=== PATIENT | female | born 1980 | race Caucasian/White ===

== ENCOUNTER 2020-05-07 10:01 | Inpatient (IN) | payer OTHER ==
[~2020-05-07] VITALS: Ht 175.3 cm; Wt 131.5 kg
--- NOTE | ~2020-05-07 | PROC ---
[address] [address] PROCEDURE REPORT Name: OLI SILVERIO Room: [address] IN M.R.#: [id number] Admission: 05/07/20 Attend Phys: Damon Stratton MD Discharge: 05/11/20 Date of : 82 Report #: [id number] THIS REPORT FOR: //name// cc: MAXIM - No family physician/PCP MAXIM - No family physician/PCP ~ THIS REPORT FOR: //name// For GI report, please see the Provation report in Perceptive 7 content. By: 1040Medical Records Staff [facility] /[place]
[2020-05-07 10:06] VITALS: BP 151/99
[2020-05-07] MEDS ORDERED: SUPER THERAVIT1 EACH PO (10:12)
[2020-05-07 10:19] LABS: URINE BLOOD NEGATIVE (Negative); URINE CLARITY CLEAR; URINE COLOR YELLOW; URINE GLUCOSE-RANDOM 1+ (Negative); URINE KETONES 2+ (Negative); URINE LEUKOCYTES-REFLEX TRACE (Negative); URINE PROTEIN TRACE (Negative); URINE SPECIFIC GRAVITY 1.025 (1.005-1.030)
[2020-05-07 10:22] LABS: ICTOTEST (BILI CONFIRMATORY) Negative (Negative); URINE BILIRUBIN 3+ (Negative); URINE NITRITE-REFLEX POSITIVE (Negative)
[2020-05-07 10:28] LABS: CASTS None Seen /LPF (None Seen); CRYSTALS None Seen /LPF (None Seen); MUCUS None Seen strn/LPF (None Seen); SQUAMOUS 4-10 Moderate /LPF (0-3); URINE RBC 3-10 Few /HPF (0-2); URINE WBC-REFLEX 0-5 Rare /HPF (0-5)
[2020-05-07 10:37] LABS: ABSOLUTE EOSINOPHILS 0.1 thou/uL (0.0-0.7); ABSOLUTE LYMPHOCYTES 0.8 thou/uL (0.8-5.3); ABSOLUTE MONOCYTES 0.5 thou/uL (0.0-1.2); ABSOLUTE NEUTROPHILS 6.1 thou/uL (1.6-8.1); BASOPHILS 0.4 %; EOSINOPHILS 0.8 %; HEMATOCRIT 44.4 % (37.0-47.0); HEMOGLOBIN 15.5 gm/dL (12.0-15.0); LYMPHOCYTES 10.2 %; MCH 29.8 pg (26.0-34.0); MCV 85.2 fL (80.0-100.0); MONOCYTES 6.5 %; MPV 8.7 fl. (7.2-11.1); NUCLEATED RBCS 0 /100WBC; PLATELET COUNT* 213 thou/uL (150-400); POLYS 82.1 %; RBC 5.21 mil/uL (4.20-5.00); WBC 7.4 thou/uL (4.0-11.0)
[2020-05-07 10:44] LABS: CALCIUM 8.6 mg/dL (8.5-10.1); CREATININE 0.8 mg/dL (0.6-1.3); POTASSIUM 3.6 mmol/L (3.5-5.1)
[2020-05-07 10:48] LABS: ALBUMIN 3.9 g/dL (3.4-5.0); TOTAL BILIRUBIN 7.6 mg/dL (<0.1-1.0); TOTAL PROTEIN 7.8 g/dL (6.4-8.2)
--- NOTE | 2020-05-07 12:25 | NUR ---
MARTHA NOTIFIED UPON PT RETURN FROM CT. PT CONNECTED TO BP AND PULSE OX MONITOR
[2020-05-07 19:51] VITALS: BP 124/70
[2020-05-07 21:30] VITALS: BP 122/58
[2020-05-08 02:07] LABS: HEPATITIS B SURFACE AG Negative (Negative)
[2020-05-08 04:03] LABS: ABSOLUTE LYMPHOCYTES 0.7 thou/uL (0.8-5.3); ABSOLUTE MONOCYTES 0.5 thou/uL (0.0-1.2); ABSOLUTE NEUTROPHILS 5.4 thou/uL (1.6-8.1); BASOPHILS 0.3 %; EOSINOPHILS 0.6 %; HEMATOCRIT 37.4 % (37.0-47.0); LYMPHOCYTES 11.1 %; MCH 29.6 pg (26.0-34.0); MCHC 35.4 g/dL (28.0-37.0); MCV 83.5 fL (80.0-100.0); MPV 8.3 fl. (7.2-11.1); NUCLEATED RBCS 0 /100WBC; PLATELET COUNT* 193 thou/uL (150-400); RBC 4.47 mil/uL (4.20-5.00); RDW-CV 13.4 % (10.5-14.5); WBC 6.8 thou/uL (4.0-11.0)
[2020-05-08 04:21] LABS: HEMOGLOBIN 13.2 gm/dL (12.0-15.0)
[2020-05-08 04:28] LABS: CALCIUM 7.9 mg/dL (8.5-10.1); CREATININE 0.9 mg/dL (0.6-1.3); POTASSIUM 3.7 mmol/L (3.5-5.1)
--- NOTE | 2020-05-08 07:03 | NUR ---
PATIENT ADMITTED TO ROOM 110 FROM THE ER AT APPROXIMATELY 2044. REPORT GIVEN FROM ER NURSE. PAIN MEDICATION GIVEN IN THE ER. PATIENT ORIENTED TO ROOM AND POLICIES AND FALL EDUCATION GIVEN AND FALL AGREEMENT SIGNED. ASSESSMENT CHARTED. PATIENT HAS REMAINED NPO SINCE MIDNIGHT. SURGERY CONSULTED AND GI CONSULTED. IV IN RIGHT FOREARM-NS @ 100ML/HR. VSS ON RA. PATIENT IS UP AD-KASIE AND STEADY. PATIENT INSTRUCTED TO USE CALL LIGHT WHEN NEEDING ASSISTANCE. HOURLY ROUNDS MADE. WILL CONTINUE WITH PLAN OF CARE AND NURSING TO MONITOR.
[2020-05-08 08:03] LABS: ALBUMIN 3.2 g/dL (3.4-5.0); DIRECT BILIRUBIN 4.2 mg/dL (<0.1-0.3); TOTAL BILIRUBIN 5.5 mg/dL (<0.1-1.0); TOTAL PROTEIN 6.2 g/dL (6.4-8.2)
[2020-05-08 08:10] VITALS: BP 93/68
--- NOTE | 2020-05-08 16:48 | NUR ---
PT A&Ox4. UP AD KASIE. IV PATENT. GALLBLADDER OUT POSSIBLY TOMORROW. PAIN CONTROLLED. WILL CONTINUE TO MONITOR.
[2020-05-08 20:00] VITALS: BP 140/76
[2020-05-09] VITALS: BP 147/72
[2020-05-09 04:13] LABS: ABSOLUTE LYMPHOCYTES 1.2 thou/uL (0.8-5.3); ABSOLUTE MONOCYTES 0.7 thou/uL (0.0-1.2); ABSOLUTE NEUTROPHILS 5.5 thou/uL (1.6-8.1); BASOPHILS 0.4 %; EOSINOPHILS 0.6 %; HEMATOCRIT 40.9 % (37.0-47.0); HEMOGLOBIN 14.3 gm/dL (12.0-15.0); LYMPHOCYTES 16.5 %; MCH 29.7 pg (26.0-34.0); MCHC 34.9 g/dL (28.0-37.0); MCV 85.1 fL (80.0-100.0); MONOCYTES 9.4 %; MPV 8.7 fl. (7.2-11.1); NUCLEATED RBCS 0 /100WBC; PLATELET COUNT* 204 thou/uL (150-400); POLYS 73.1 %; RBC 4.81 mil/uL (4.20-5.00); WBC 7.5 thou/uL (4.0-11.0)
[2020-05-09 04:30] LABS: ALBUMIN 3.5 g/dL (3.4-5.0); CALCIUM 8.3 mg/dL (8.5-10.1); CREATININE 0.8 mg/dL (0.6-1.3); POTASSIUM 3.6 mmol/L (3.5-5.1); TOTAL BILIRUBIN 3.4 mg/dL (<0.1-1.0); TOTAL PROTEIN 6.7 g/dL (6.4-8.2)
--- NOTE | 2020-05-09 06:48 | NUR ---
Alert and oriented x 4. She is up independently in the room and is voiding well. Vitals are stable. She had pain med x 1 for rt upper quadrant pain that radiates. She has not had anything by mouth since midnight. She has slept well.
[2020-05-09 08:10] VITALS: BP 145/86
[2020-05-09 11:36] VITALS: BP 147/72
--- NOTE | 2020-05-09 18:42 | NUR ---
ASSUMED CARE OF PATIENT AT APPROX 0730. ALERT AND ORIENTED X4. ASSESSMENT COMPLETED AND CHARTED. VSS ON ROOM AIR. NO COMPLAINTS OF PAIN OR NAUSEA. PATIENT TO PACU AT APPROX 1215 AND RETURNED AT 1720. PATIENT REMAINS ALERT AND ORIENTED AND NO COMPLAINTS OF PAIN OR NAUSEA AFTER HAVING WATER AND JELLO. ANTIBIOTIC INFUSED ORDERED. CALL LIGHT WITHIN REACH. HOURLY ROUNDS COMPLETED. WILL CONTINUE WITH PLAN OF CARE.
[2020-05-09 20:00] VITALS: BP 135/77
[2020-05-10] VITALS: BP 141/72
[2020-05-10 03:54] LABS: HEMATOCRIT 40.3 % (37.0-47.0); HEMOGLOBIN 14.1 gm/dL (12.0-15.0); MCH 29.7 pg (26.0-34.0); MCHC 34.9 g/dL (28.0-37.0); MPV 8.6 fl. (7.2-11.1); RBC 4.74 mil/uL (4.20-5.00); RDW-CV 13.1 % (10.5-14.5); WBC 7.2 thou/uL (4.0-11.0)
[2020-05-10 04:03] VITALS: BP 153/85; BP 153/885
[2020-05-10 04:07] LABS: ALBUMIN 3.2 g/dL (3.4-5.0); CALCIUM 8.8 mg/dL (8.5-10.1); CREATININE 0.9 mg/dL (0.6-1.3); MAGNESIUM 2.1 mg/dL (1.8-2.4); POTASSIUM 4.1 mmol/L (3.5-5.1); TOTAL BILIRUBIN 3.7 mg/dL (<0.1-1.0); TOTAL PROTEIN 7.3 g/dL (6.4-8.2)
--- NOTE | 2020-05-10 07:00 | NUR ---
Alert and oriented x 4. She had a lap azul yesterday and has lap sites x 4 approximated with dermabond. She is up indenendently to the bathroom., voiding well but no flatus.Pain meds x 2. NPO since midnight for possible ERCP.
--- NOTE | 2020-05-10 07:36 | NUR ---
I did speak with Dr Bustamante regarding cholangiogram yesterday during laparoscopic cholecystectomy, there was a stricture observed and she should probably have an ERCP done today. Dr Lanier did write in his note yesterday that he would re-evaluate if it needed to be done today. I did call Dr Lanier's answering service and Dr Moreira is radiation therapist,message was left. I also did tell the frame sample and pattern supervisor that there would most likely be an ERCP today. Patient has been NPO since midnight.
[2020-05-10 08:00] VITALS: BP 158/88
--- NOTE | 2020-05-10 13:17 | OP ---
[address] [address] OPERATIVE REPORT Name: OFELIA SILVERIOLISA Castellanos Room: [address] IN M.R.#: [id number] Admission: 05/07/20 Attend Phys: Damon Stratton MD Discharge: Date of : 82 Report #: [id number] THIS REPORT FOR: //name// cc: MAXIM Salcedo family physician/PCP MAXIM Salcedo family physician/PCP ~ THIS REPORT FOR: //name// CC: Damon PAN physician/PCP DATE OF SERVICE: 05/09/2020 PREOPERATIVE DIAGNOSIS: Acute cholecystitis with abnormal liver function tests. POSTOPERATIVE DIAGNOSES: Acute cholecystitis with abnormal liver function tests. PROCEDURE: Laparoscopic cholecystectomy with intraoperative cholangiogram. SURGEON: Tapan Head MD ANESTHESIA: General. ESTIMATED BLOOD LOSS: Minimal. SPECIMEN: Gallbladder. DESCRIPTION OF PROCEDURE: After informed consent was obtained, the patient was brought to the operating room and placed supine. SCDs were placed and working, preoperative antibiotics were administered, general anesthesia was induced. The abdomen was prepped and draped in the usual sterile fashion. A 10 mm incision was made below the umbilicus. Fascia was incised and a trocar was placed. Pneumoperitoneum was established. Three right upper quadrant 5 mm ports were placed. Gallbladder was grasped at the fundus and retracted cephalad. Infundibulum was grasped and retracted laterally. I dissected out the cystic duct and cystic artery. A ductotomy was made. Cholangiogram catheter was inserted. Cholangiogram was performed. This demonstrated filling of the cystic duct, common bile duct, common hepatic duct, bifurcation of the hepatics. There was a filling defect in the distal common bile duct, and the common bile duct was enlarged. The cholangiogram catheter was removed. The cystic duct was clipped and ligated leaving a clip and a PDS Endoloop on the remaining duct. The cystic artery was clipped and ligated leaving a clip on the remaining artery. Gallbladder was then taken off the liver bed with electrocautery. It was placed into an Endopouch and removed. The fascia was then closed with a [id number] [address] [place] [address] OPERATIVE REPORT Name: OLI SILVERIO Room: [address] IN [facility]#: [id number] Admission: 05/07/20 Attend Phys: Damon Stratton MD Discharge: Date of : 82 Report #: [id number] Vicryl. Skin was closed with 4-0 Monocryl. Incisions were sealed with Dermabond. COMPLICATIONS: None. DISPOSITION: The patient was taken to recovery in satisfactory condition. <ELECTRONICALLY SIGNED> By: Tapan Head MD 05/10/20 1317 1650 1700Jomelia Head MD /nt
--- NOTE | 2020-05-10 13:19 | NUR ---
PT.LIVES WITH MOM AND EXTENED FAMILY. IS INDEPENDENT. NO USE OF DME, HX OF HH OR SNF. IS SAD, WAS SUPPOSED TO DRIVE TO [place] TODAY FOR VACATION. ANTICIPATES 1-2 MORE DAYS IN HOSPITAL.
--- NOTE | 2020-05-10 17:54 | NUR ---
PT IS A/O X4,VSS,MED-SURG STATUS.PAIN MANAGED WELL WITH PO MEDICATIONS.NEW IV INSERTED IN RIGHT HAND.LAP SITES CLEAN,DRY, AND INTACT.PT TOLERATING CLEAR LIQUID DIET.NPO AT MIDNIGHT FOR ERCP IN THE AM.CONSENT ON CHART BUT NOT SIGNED.PT INFORMED OF PLAN OF CARE AND COMMUNICATES UNDERSTANDING.CALL LIGHT WITHIN REACH.WILL CONTINUE TO MONITOR FOR DURATION OF SHIFT.
[2020-05-10 20:30] VITALS: BP 122/65
[2020-05-11 04:12] LABS: ALBUMIN 2.9 g/dL (3.4-5.0); CALCIUM 8.3 mg/dL (8.5-10.1); CREATININE 0.9 mg/dL (0.6-1.3); MAGNESIUM 1.9 mg/dL (1.8-2.4); POTASSIUM 3.5 mmol/L (3.5-5.1); TOTAL BILIRUBIN 3.1 mg/dL (<0.1-1.0); TOTAL PROTEIN 6.7 g/dL (6.4-8.2)
--- NOTE | 2020-05-11 05:18 | NUR ---
PT A&O, VSS ON RA. MEDS GIVEN ORDERED. NO C/O PAIN. LAP SITE C/D/I. NPO SINCE MIDNIGHT FOR PROCEDURE. WILL CONTINUE TO MONITOR.
[2020-05-11 07:15] VITALS: BP 134/89
[2020-05-11 08:16] VITALS: BP 147/72
--- NOTE | 2020-05-11 11:29 | NUR ---
PT RETURNED FROM SURGERY. PT ALERT AND ORIENTED. PT RESTING IN BED. PT NOTIFIED OF NO DISCHARGE ORDERS, PT STATES SHE IS NOT HAPPY ABOUT IT. PT EDUCATED ON REASONS FOR WHY. FALL RISK PRECAUTIONS IN PLACE. WILL CONTINUE TO MONITOR.
[2020-05-11 12:29] VITALS: BP 147/72
[2020-05-11] MEDS ORDERED: NORCO 5-325 TA1 EAC1 PO (12:38)
[2020-05-11] MEDS ORDERED: FLUCONAZOLE200 MG PO (12:39)
--- NOTE | 2020-05-11 13:22 | NUR ---
PT GIVEN DISCHARGE INSTRUCTIONS, PRESCRIPTIONS, AND CARE NOTES. [facility] CALLED INTO PHARMACY FOR PT. IV REMOVED. PT BELONGINGS GATHERED. FALL RISK PRECAUTIONS IN PLACE. HOURLY ROUNDING COMPLETED. PT LEFT VIA WHEELCHAIR WITH NURSING STAFF TO HOME.
[2020-05-11 14:09] VITALS: BP 147/72
--- NOTE | 2020-05-14 11:08 | PATH ---
[facility] [address] [place] [address] PATHOLOGY RPT PROCEDURE Name: OWEN GAN Room: [address] IN M.R.#: [id number] Admission: 05/07/20 Date of : 82 Discharge: 05/11/20 Report #: [id number] Path Case #: [id number] [facility] Accession Number: [id number] . 01 Material submitted: . gallbladder - GALLBLADDER . 01 Clinical history: . Cholecystitis . 02 Diagnosis: Gallbladder: - Chronic cholecystitis, cholesterolosis, and cholelithiasis with benign lymph node. (VIRI:shashi; 05/13/2020) [facility] [place] 05/13/2020 1554 Local . 02 Electronically signed: . Eduardo Irene MD, Pathologist NPI- [id number] . 01 Gross description: . The specimen is received in formalin, labeled "Owen Gan, gallbladder" and consists of an intact green purple gallbladder measuring 10.3 x 3.7 x 3.4 cm. The margin is inked. Opening reveals thick green bile and multiple yellow granular calculi measuring up to 0.3 cm in diameter. The mucosa is smooth and black with a wall thickness of 0.1 cm. No gross lesions are identified. A lymph node is present. Magistrate Judge sections are submitted in A1-A2. (DHRUV; 05/09/2020) ANIK[facility]/MARY 05/09/2020 2208 Local . 02 Pathologist provided ICD-10: K80.10, K82.4 . 02 CPT . 767441 Specimen Comment: A courtesy copy of this report has been sent to [phone] Specimen Comment: [phone] Specimen Comment: Report sent to / DR MAYFIELD Performed at: [address] [id number] MD Shiva Tobar MD Phone: [phone] Performed at: [address] [id number] [address] [address] PATHOLOGY RPT PROCEDURE Name: JEAN CLAUDEOWEN Emanuel Room: [facility] IN M.R.#: [id number] Admission: 05/07/20 Date of : 82 Discharge: 05/11/20 Report #: [id number] Path Case #: [id number] MD Eduardo Irene MD Phone: [phone]
--- NOTE | 2020-05-24 13:50 | CON ---
[address] [address] CONSULTATION Name: OLI SILVERIO Emanuel Room: [address] IN M.R.#: [id number] Admission: 05/07/20 Attend Phys: Damon Stratton MD Discharge: 05/11/20 Date of : 82 Report #: [id number] THIS REPORT FOR: //name// cc: MAXIM Salcedo family physician/PCP MAXIM - No family physician/PCP ~ THIS REPORT FOR: //name// CC: Damon Stratton MD [facility] physician/PCP DATE OF SERVICE: 05/08/2020 REASON FOR CONSULT: Abnormal liver enzymes. REFERRING PHYSICIAN: Damon Stratton MD HISTORY OF PRESENT ILLNESS: This is a 40-year-old female who presented to hospital with abdominal pain and nausea. The patient also had yellowing of her skin. She denied fever, chills, vomiting, diarrhea and constipation. She has a history of gastric sleeve a year and a half ago and has nearly lost 100 pounds. Since hospitalization, the patient had a CT of abdomen and pelvis, ultrasound, and a CCK PIPIDA scan. ALLERGIES: No known drug allergy. MEDICATIONS: Please refer to MAR. PAST MEDICAL HISTORY: Includes morbid obesity, history of gastric sleeve, and appendectomy. SOCIAL HISTORY: The patient denies tobacco or alcohol use. FAMILY HISTORY: Negative for GI malignancy. PHYSICAL EXAMINATION: VITAL SIGNS: Reveals blood pressure of 93/68, respirations 14, pulse 54, temperature 97.7. LUNGS: Clear. CARDIOVASCULAR: Regular. ABDOMEN: Soft, mildly tender to palpation in the right upper quadrant and epigastric region. Bowel sounds are positive. NEUROLOGIC: The patient is alert and oriented x 3. There is no focal [facility] [address] [place] [address] CONSULTATION Name: OLI SILVERIO Room: [address]#: [id number] Admission: 05/07/20 Attend Phys: Damon Stratton MD Discharge: 05/11/20 Date of : 82 Report #: [id number] neurologic deficit. LABORATORY DATA: Labs reveal sodium of 139, potassium 3.7, BUN is 12, creatinine 0.9, total bilirubin is 5.5, direct is 4.2, alkaline phosphatase is 202, ALT 242 and AST 116. Viral hepatitis serology is negative. WBC 6.8 with hemoglobin of 13.2 and platelet of 193. IMAGING: Abdominal ultrasound reveals a gallstone and sludge in the gallbladder. The gallbladder also mildly distended and bile duct measures 6 mm. ASSESSMENT AND PLAN: The patient with gallstones and elevated LFTs. CCK PIPIDA scan was done and pending results. If this was negative, we will consider MRCP prior to considering ERCP as the patient may have passed the stone. We will follow up with LFTs tomorrow and make further recommendation. If the patient undergoes laparoscopic cholecystectomy, she should have intraoperative cholangiogram. <ELECTRONICALLY SIGNED> By: Avelina Lanier MD 05/24/20 1350 1640 [id number] Lanier MD /nt
== END 2020-05-11 14:09 | disposition home or self-care (01) | DRG 418 ==
LOC: M.ERS 10:01 → M.TBA-ER 11:31 → M.ORTHSURG 20:04
PROVIDERS: Family Medicine; Internal Medicine; ADMIT Internal Medicine; ATTEND Internal Medicine
PROC: 0FT44ZZ Resection of Gallbladder, Percutaneous Endoscopic Approach (ICD-10-PCS; principal; 2020-05-09)
PROC: BF121ZZ Fluoroscopy of Gallbladder using Low Osmolar Contrast (ICD-10-PCS; principal; 2020-05-09)
PROC: 0FC98ZZ Extirpation of Matter from Common Bile Duct, Via Natural or Artificial Opening Endoscopic (ICD-10-PCS; 2020-05-11)
DX: K80.01 Calculus of gallbladder with acute cholecystitis with obstruction (principal); Z68.41 Body mass index [BMI] 40.0-44.9, adult; E66.01 Morbid (severe) obesity due to excess calories; K75.9 Inflammatory liver disease, unspecified; Z90.49 Acquired absence of other specified parts of digestive tract